=== PATIENT | female | born 1940 | race Hispanic/Latino ===

== ENCOUNTER 2021-02-08 19:22 | Inpatient (IN) | payer MEDICARE ==
[2021-02-08] MEDS ORDERED: SODIUM CHLORIDE 0.9% 500 ML 500 ML IV ONE (21:38)
[2021-02-08] MEDS ORDERED: ALBUTEROL 2.5 MG/3 ML NEBU IH ONE (21:38)
[2021-02-08] MEDS ORDERED: MORPHINE 4 MG/1 ML INJ IV ONE (21:38)
[2021-02-08] MEDS ORDERED: ACETAMINOPHEN 500 MG TAB PO ONE (21:38)
[2021-02-08] MEDS ORDERED: ONDANSETRON 4 MG/2 ML INJ IV ONE (21:38)
[2021-02-08] MEDS ORDERED: IPRATROPIUM 0.02% NEBU 2.5 ML IH ONE (21:38)
[2021-02-08] MEDS ORDERED: dexAMETHasone 4 MG/ML VIAL IV ONE (21:40)
--- NOTE | 2021-02-08 21:41 | Emergency Department Report ---
ED General Adult HPI - General Chief complaint: Dyspnea/Respdistress Stated complaint: LAURA PUI?: Yes Time Seen by Provider: 02/08/21 21:20 Source: patient, EMS ( EMS documentation not available at time of chart dictation ), RN notes reviewed Mode of arrival: Stretcher Limitations: Physical Limitation - History of Present Illness Initial comments: The patient was evaluated in the emergency department for symptoms described in the history of present illness. He/she was evaluated in the context of the global COVID-19 pandemic, which necessitated consideration that the patient might be at risk for infection with the virus that causes COVID-19. Institutional protocols and algorithms that pertain to the evaluation of patient s at risk for COVID-19 are in a state of rapid change based on information released by regulatory bodies including the CDC and federal and state organizations. These policies and algorithms were followed during the patient's care in the emergency department. Please note that these policies, procedures and recommendations changed on a rapid basis. Hematology oncology: Dr. Solis Past medical history: Chronic respiratory failure, on as needed home oxygen. Reported history of COPD and lung cancer. DNR, DNI status. Believes she is up-to-date with COVID-19 vaccination. The patient is a 80-year-old female who is not known to myself previously. She presents to the ER with a complaint of generalized weakness, cough, shortness of breath, clear mucus production. She states that she has mild nausea but no vomiting. She states that she is bedbound. She states she typically gets around in a wheelchair. No fever. No headache. No chest pain. No vomiting. No diarrhea. No dysuria. No focal extremity weakness/numbness. No hematemesis of bright red blood per rectum. No known exposure to Covid. She states she lives with a friend/roommate. She reports her son is named Eduardo, candis d lives in [facility]. The patient is interested in comfort care, and is amenable to fluids, blood work, and some diagnostic radiology. She is not interested in packed red blood cell transfusions. -: Gradual, week(s) Consistency: constant Improves with: rest Worsens with: movement - Related Data Allergies Allergy/AdvReac Type Severity Reaction Status Date / Time Penicillins Allergy Mild Hives Verified 02/08/21 21:24 ED Review of Systems ROS: Stated complaint: LAURA Other details as noted in HPI Constitutional: malaise, weakness Eyes: denies: eye discharge ENT: denies: epistaxis Respiratory: cough, shortness of breath, SOB with exertion, SOB at rest, wheezing Cardiovascular: denies: chest pain Gastrointestinal: nausea. denies: abdominal pain Musculoskeletal: denies: back pain Neurological: weakness Hematological/Lymphatic: denies: easy bleeding ED Past Medical Hx - Past Medical History Hx of Cancer: Yes Hx COPD: Yes Additional medical history: lung CA - Social History Smoking Status: Former Smoker Substance Use Type: None ED Physical Exam - General Limitations: Physical Limitation General appearance: alert, anxious, in distress - Head Head exam: Present: atraumatic, normocephalic - Eye Eye exam: Present: normal appearance, EOMI. Absent: nystagmus - ENT ENT exam: Present: normal exam, normal orophraynx, mucous membranes moist, normal external ear exam - Neck Neck exam: Present: normal inspection, full ROM - Respiratory Respiratory exam: Present: respiratory distress, other (Pulmonary auscultation not performed secondary to lack of disposable stethoscope). 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 Absent: distended, tenderness, guarding, rebound, rigid, pulsatile mass - Extremities Exam Extremities exam: Present: normal inspection, other (2+ pulses noted in the bilateral upper and lower extremities. There is no palpable cord. negative Homans sign. Muscular compartments are soft. The pelvis is stable.). Absent: normal capillary refill (3-second capillary refill in the lower extremities), pedal edema, calf tenderness - Back Exam Back exam: Present: normal inspection. Absent: tenderness, CVA tenderness (R), CVA tenderness (L), paraspinal tenderness, vertebral tenderness - Neurological Exam Neurological exam: Present: alert, oriented X3, other (No facial droop. Tongue midline. Extraocular movements intact bilaterally. Facial sensation intact to light touch in V1, V2, V3 distribution bilaterally. 5 and a 5 strength in 4 extremities. Sensation intact to light touch in 4 extremities.) - Psychiatric Psychiatric exam: Present: anxious - Skin Skin exam: Present: warm, dry, intact, normal color. Absent: rash ED Course Vital Signs 02/08/21 02/08/21 02/08/21 20:02 20:16 21:16 Temperature Pulse Rate 82 Pulse Rate [ Bilateral] Respiratory 21 Rate Respiratory Rate [Bilateral ] Blood Pressure 134/69 134/69 132/64 O2 Sat by Pulse 99 96 96 Oximetry 02/08/21 02/08/21 02/08/21 21:25 21:30 21:45 Temperature 99.3 F Pulse Rate 82 80 80 Pulse Rate [ Bilateral] Respiratory 23 27 H Rate Respiratory Rate [Bilateral ] Blood Pressure 132/64 132/64 O2 Sat by Pulse 95 94 Oximetry 02/08/21 02/08/21 02/08/21 21:46 22:00 22:16 Temperature Pulse Rate 81 81 85 Pulse Rate [ Bilateral] Respiratory 21 22 22 Rate Respiratory Rate [Bilateral ] Blood Pressure 134/69 122/83 132/64 O2 Sat by Pulse 95 96 92 Oximetry 02/08/21 02/08/21 22:30 22:54 Temperature Pulse Rate 82 Pulse Rate [ 82 Bilateral] Respiratory 19 Rate Respiratory 20 Rate [Bilateral ] Blood Pressure 132/64 O2 Sat by Pulse 92 Oximetry - Reevaluation(s) Reevaluation #1: 02/08/21 22:22 Differential diagnosis, including but not limited to: COPD exacerbation, pneumonia, COVID-19, electrolyte derangement, failure to thrive, urinary tract infection, DNR status Assessment and plan: 80-year-old female with chronic respiratory failure, known history of COPD, known history of lung cancer, states not currently on chemotherapy or radiation therapy, likely presenting with natural history of end-stage COPD. Patient states she is bedbound, poorly mobile, and is interested in comfort care. There is no history of trauma. She has signed an a rticulated but desire to be DO NOT RESUSCITATE, DO NOT INTUBATE; this conversation is witnessed by nurse Fiorella Benites. The patient and I spent about 15 minutes discussing advanced directives and goa ls of care. She is not interested in packed red blood cell. She is amenable to having port access, analgesia, antiemetics, and supportive care. I appreciate that this patient has risk factors for pulmonary embolism, however, given advanced age, poor mobility, fall risk, her desire to not receive packed red blood cell transfusion, and articulated goals of care (comfort care), will not work-up/pursue pulmonary embolism at this time. Have recommended admission to the medical service once initial diagnostics are resulted. Patient is agreeable to this plan of care. She is asking to drink water. We will treat her empirically with acetaminophen, antiemetics, albuterol, Atrovent and steroids. 02/08/21 23:09 Laboratory studies, x-ray of the chest reviewed and appreciated. Levaquin ordered given penicillin allergy. Admitted to hospital service, Dr. Angela Shen and RONY Cardoso ED Medical Decision Making - Lab Data Result diagrams: 02/08/21 21:52 02/08/21 21:52 Vital Signs 02/08/21 02/08/21 02/08/21 20:02 20:16 21:16 Temperature Pulse Rate 82 Respiratory 21 Rate Blood Pressure 134/69 134/69 132/64 O2 Sat by Pulse 99 96 96 Oximetry 02/08/21 02/08/21 02/08/21 21:25 21:30 21:45 Temperature 99.3 F Pulse Rate 82 80 80 Respiratory 23 27 H Rate Blood Pressure 132/64 132/64 O2 Sat by Pulse 95 94 Oximetry 02/08/21 21:46 Temperature Pulse Rate Respiratory Rate Blood Pressure O2 Sat by Pulse 93 Oximetry Lab Results 02/08/21 02/08/21 Range/Units 21:52 21:52 WBC 8.1 (4.5-11.0) K/mm3 RBC 4.71 (3.65-5.03) M/mm3 Hgb 13.7 (10.1-14.3) gm/dl Hct 40.3 (30.3-42.9) % MCV 86 (79-97) fl MCH 29 (28-32) pg MCHC 34 (30-34) % RDW 17.3 H (13.2-15.2) % Plt Count 283 (140-440) K/mm3 Lymph % (Auto) 13.4 (13.4-35.0) % [place] % (Auto) 7.8 H (0.0-7.3) % Eos % (Auto) 2.5 (0.0-4.3) % Baso % (Auto) 0.5 (0.0-1.8) % Lymph # (Auto) 1.1 L (1.2-5.4) K/mm3 [place] # (Auto) 0.6 (0.0-0.8) K/mm3 Eos # (Auto) 0.2 (0.0-0.4) K/mm3 Baso # (Auto) 0.0 (0.0-0.1) K/mm3 Seg Neutrophils % 75.8 H (40.0-70.0) % Seg Neutrophils # 6.1 (1.8-7.7) K/mm3 PT 14.2 (12.2-14.9) Sec. INR 1.05 (0.87-1.13) D-Dimer 794.56 H (0-234) ng/mlDDU Lab Results 02/08/21 02/08/21 02/08/21 Range/Units 21:52 21:52 21:52 WBC 8.1 (4.5-11.0) K/mm3 RBC 4.71 (3.65-5.03) M/mm3 Hgb 13.7 (10.1-14.3) gm/dl Hct 40.3 (30.3-42.9) % MCV 86 (79-97) fl MCH 29 (28-32) pg MCHC 34 (30-34) % RDW 17.3 H (13.2-15.2) % Plt Count 283 (140-440) K/mm3 Lymph % (Auto) 13.4 (13.4-35.0) % [place] % (Auto) 7.8 H (0.0-7.3) % Eos % (Auto) 2.5 (0.0-4.3) % Baso % (Auto) 0.5 (0.0-1.8) % Lymph # (Auto) 1.1 L (1.2-5.4) K/mm3 [place] # (Auto) 0.6 (0.0-0.8) K/mm3 Eos # (Auto) 0.2 (0.0-0.4) K/mm3 Baso # (Auto) 0.0 (0.0-0.1) K/mm3 Seg Neutrophils % 75.8 H (40.0-70.0) % Seg Neutrophils # 6.1 (1.8-7.7) K/mm3 PT (12.2-14.9) Sec. INR (0.87-1.13) D-Dimer (0-234) ng/mlDDU Sodium 138 (137-145) mmol/L Potassium 4.1 (3.6-5.0) mmol/L Chloride 100.7 (98-107) mmol/L Carbon Dioxide 24 (22-30) mmol/L Anion Gap 17 mmol/L BUN 13 (7-17) mg/dL Creatinine 0.6 (0.6-1.2) mg/dL Estimated GFR > 60 ml/min BUN/Creatinine Ratio 22 % Glucose 82 (65-100) mg/dL Lactic Acid 0.80 (0.7-2.0) mmol/L Calcium 9.0 (8.4-10.2) mg/dL Magnesium 1.80 (1.7-2.3) mg/dL Ferritin (10.0-200.0) ng/mL Total Bilirubin 0.40 (0.1-1.2) mg/dL AST 14 (5-40) units/L ALT 6 L (7-56) units/L Alkaline Phosphatase 66 (35-129) units/L Lactate Dehydrogenase (91-180) units/L Troponin T (0.00-0.029) ng/mL C-Reactive Protein (0.00-1.30) mg/dL NT-Pro-B Natriuret Pep 498.9 (0-900) pg/mL Total Protein 7.9 (6.3-8.2) g/dL Albumin 3.7 L (3.9-5) g/dL Albumin/Globulin Ratio 0.9 % 02/08/21 02/08/21 02/08/21 Range/Units 21:52 21:52 21:52 WBC (4.5-11.0) K/mm3 RBC (3.65-5.03) M/mm3 Hgb (10.1-14.3) gm/dl Hct (30.3-42.9) % MCV (79-97) fl MCH (28-32) pg MCHC (30-34) % RDW (13.2-15.2) % Plt Count (140-440) K/mm3 Lymph % (Auto) (13.4-35.0) % [place] % (Auto) (0.0-7.3) % Eos % (Auto) (0.0-4.3) % Baso % (Auto) (0.0-1.8) % Lymph # (Auto) (1.2-5.4) K/mm3 [place] # (Auto) (0.0-0.8) K/mm3 Eos # (Auto) (0.0-0.4) K/mm3 Baso # (Auto) (0.0-0.1) K/mm3 Seg Neutrophils % (40.0-70.0) % Seg Neutrophils # (1.8-7.7) K/mm3 PT 14.2 (12.2-14.9) Sec. INR 1.05 (0.87-1.13) D-Dimer 794.56 H (0-234) ng/mlDDU Sodium (137-145) mmol/L Potassium (3.6-5.0) mmol/L Chloride (98-107) mmol/L Carbon Dioxide (22-30) mmol/L Anion Gap mmol/L BUN (7-17) mg/dL Creatinine (0.6-1.2) mg/dL Estimated GFR ml/min BUN/Creatinine Ratio % Glucose 85 (65-100) mg/dL Lactic Acid (0.7-2.0) mmol/L Calcium (8.4-10.2) mg/dL Magnesium (1.7-2.3) mg/dL Ferritin 110.6 (10.0-200.0) ng/mL Total Bilirubin (0.1-1.2) mg/dL AST (5-40) units/L ALT (7-56) units/L Alkaline Phosphatase (35-129) units/L Lactate Dehydrogenase 165 (91-180) units/L Troponin T < 0.010 (0.00-0.029) ng/mL C-Reactive Protein 6.10 H (0.00-1.30) mg/dL NT-Pro-B Natriuret Pep (0-900) pg/mL Total Protein (6.3-8.2) g/dL Albumin (3.9-5) g/dL Albumin/Globulin Ratio % - EKG Data -: EKG Interpreted by Tn EKG shows normal: sinus rhythm - EKG Data When compared to previous EKG there are: previous EKG unavailable 02/08/21 22:25 EKG interpreted at 21: 42 Sinus rhythm, rate 80 bpm. Normal axis, normal P wave axis. Q waves noted. Motion artifact. Abnormal EKG. Not a STEMI. No prior for comparison. - Radiology Data Radiology results: pending, report reviewed, image reviewed [facility] [address] [place] [address] XRay Report Signed Patient: LIT FELIX MR#: [id number] : 1940 Acct:[id number] Age/Sex: 80 / F ADM Date: 02/08/21 Loc: ED Attending Dr: Nic nicholas Physician: LIZETTE KAMARA MD Date of Service: 02/08/21 Procedure(s): XR chest 1V ap Accession Number(s): [id number] cc: LIZETTE KAMARA MD Fluoro Time In Minutes: CHEST 1 VIEW INDICATION: Dyspnea. COMPARISON: None FINDINGS: SUPPORT DEVICES: Right-sided Port-A-Cath with tip at the cavoatrial junction. HEART: Within normal limits. LUNGS/PLEURA: Emphysematous changes in the lungs with chronic-appearing diffuse interstitial disease. No dense consolidation or pleural effusion. ADDITIONAL FINDINGS: None. IMPRESSION: 1. No definite acute findings. Likely chronic findings. Signer Name: Tray Gavin MD Signed: 02/08/2021 10:12 PM Workstation Name: [id number] Transcribed By: JW Dictated By: Tray Gavin MD Electronically Authenticated By: Tray Gavin MD Signed Date/Time: 02/08/212211 DD/ 10 Critical Care Time: Yes Critical care time in (mins) excluding proc time.: 35 Critical care attestation.: If time is entered above; I have spent that time in minutes in the direct care of this critically ill patient, excluding procedure time. ED Disposition Clinical Impression: COPD with exacerbation, History of lung cancer, Failure to thrive, Chronic respiratory failure, DNR (do not resuscitate) discussion Disposition: DC-09 OP ADMIT IP TO THIS HOSP Is pt being admited?: Yes Does the pt Need Aspirin: No Condition: Poor Instructions: Chronic Obstructive Pulmonary Disease (ED) Referrals: PRIMARY CARE, [Primary Care Provider] - 3-5 Days
[2021-02-08 22:10] LABS: Basophils % (Auto) 0.5 % (0.0-1.8); Eosinophils # (Auto) 0.2 K/mm3 (0.0-0.4); Eosinophils % (Auto) 2.5 % (0.0-4.3); Hematocrit 40.3 % (30.3-42.9); Hemoglobin 13.7 gm/dl (10.1-14.3); Lymphocytes # (Auto) 1.1 K/mm3 (1.2-5.4); Lymphocytes % (Auto) 13.4 % (13.4-35.0); Mean Corpuscular HGB Conc 34 % (30-34); Mean Corpuscular Volume 86 fl (79-97); Monocytes # (Auto) 0.6 K/mm3 (0.0-0.8); Monocytes % (Auto) 7.8 % (0.0-7.3); Platelet Count 283 K/mm3 (140-440); Red Blood Count 4.71 M/mm3 (3.65-5.03); Red Cell Distribution Width 17.3 % (13.2-15.2)
--- NOTE | 2021-02-08 22:17 | XRay Report ---
CHEST 1 VIEW INDICATION: Dyspnea. COMPARISON: None FINDINGS: SUPPORT DEVICES: Right-sided Port-A-Cath with tip at the cavoatrial junction. HEART: Within normal limits. LUNGS/PLEURA: Emphysematous changes in the lungs with chronic-appearing diffuse interstitial disease. No dense consolidation or pleural effusion. ADDITIONAL FINDINGS: None. IMPRESSION: 1. No definite acute findings. Likely chronic findings. Signer Name: Tray Gavin MD Signed: 02/08/2021 10:12 PM Workstation Name: [id number]
[2021-02-08 22:21] LABS: INR 1.05 (0.87-1.13)
[2021-02-08 22:59] LABS: Alanine Aminotransferase 6 units/L (7-56); Albumin 3.7 g/dL (3.9-5); Blood Urea Nitrogen 13 mg/dL (7-17); Hemolysis Index 4
[2021-02-08 23:01] LABS: BUN/Creatinine Ratio 22
[2021-02-08] MEDS ORDERED: MAGNESIUM HYDROXIDE (MOM) ORAL LIQD UDC PO PRN (23:37)
[2021-02-08] MEDS ORDERED: MORPHINE 4 MG/1 ML INJ IV PRN (23:37)
[2021-02-08] MEDS ORDERED: ACETAMINOPHEN 325 MG TAB PO PRN (23:37)
--- NOTE | 2021-02-08 23:49 | History and Physical Report ---
History of Present Illness Date of examination: 02/08/21 Date of admission: 02/08/2021 Chief complaint: Shortness of Breath Cough History of present illness: 80-year-old female with known history of COPD-on home oxygen and lung cancer presents to the emergency room today complaining of cough, shortness of breath and generalized body weakness. Cough has been productive for some clear sputum. She denies any fever or chills, no chest pain, no headache or dizziness and no diaphoresis. Patient has had some nausea but no vomiting, no abdominal pain, no hematuria or dysuria. She denies any recent travel and no sick contacts. She denies any contact with anyone with COVID-19. Patient has been fully vaccinated against COVID-19. She lives with a roommate and she gets around on a wheelchair. She indicates that she is amenable to comfort care, IV fluid, lab test and some diagnostic radiology. Work-up in the emergency room today, chest x-ray shows no acute findings. Lab tests were unremarkable. Patient received nebulizing treatments and IV steroid in the emergency room with significant improvement. Past History Past Medical History: COPD, other (H/O Lung CA.) Past Surgical History: No surgical history Social history: no significant social history Family history: no significant family history Medications and Allergies Allergies Allergy/AdvReac Type Severity Reaction Status Date / Time Penicillins Allergy Mild Hives Verified 02/08/21 21:24 Active Meds: Active Medications Acetaminophen (Acetaminophen 325 Mg Tab) 650 mg PO Q4H PRN PRN Reason: Pain MILD(1-3)/Fever >100.5/IBRAHIM Albuterol/Ipratropium (Ipratropium/Albuterol Sulfate 3 Ml Ampul.Neb) 1 ampul IH Q4HRT STEPHANY Levofloxacin/Dextrose (Levaquin 500mg/100ml) 500 mg in 100 mls @ 100 mls/hr IV ONCE ONE; Protocol Stop: 02/09/21 00:07 Levofloxacin/Dextrose (Levaquin 750mg/150ml) 750 mg in 150 mls @ 100 mls/hr IV Q24H STEPHANY; Protocol Magnesium Hydroxide (Magnesium Hydroxide (Mom) Oral Liqd Udc) 30 ml PO Q4H PRN PRN Reason: Constipation Methylprednisolone Sodium Succinate (Methylprednisolone Sod Succinate 40 Mg/1 Ml Inj) 40 mg IV Q8HR STEPHANY Morphine Sulfate (Morphine 2 Mg/1 Ml Inj) 2 mg IV Q4H PRN PRN Reason: Pain, Moderate (4-6) Morphine Sulfate (Morphine 4 Mg/1 Ml Inj) 4 mg IV Q4H PRN PRN Reason: Pain , Severe (7-10) Ondansetron HCl (Ondansetron 4 Mg/2 Ml Inj) 4 mg IV Q8H PRN PRN Reason: Nausea And Vomiting Sodium Chloride (Sodium Chloride 0.9% 10 Ml Flush Syringe) 10 ml IV BID STEPHANY Sodium Chloride (Sodium Chloride 0.9% 10 Ml Flush Syringe) 10 ml IV PRN PRN PRN Reason: LINE FLUSH Review of Systems Constitutional: weakness, no fever, no chills Ears, nose, mouth and throat: no nasal congestion, no sore throat Cardiovascular: no chest pain, no palpitations Respiratory: cough, shortness of breath Gastrointestinal: nausea, no abdominal pain, no vomiting, no diarrhea Genitourinary Female: no pelvic pain, no flank pain, no dysuria, no hematuria Musculoskeletal: no neck pain, no low back pain Integumentary: no rash, no pruritis Neurological: no headaches, no confusion Psychiatric: no anxiety, no depression Endocrine: no polydipsia, no polyuria, no nocturia Exam - Constitutional Vitals: Temp Pulse Resp BP Pulse Ox 99.3 F 82 20 132/64 92 02/08/21 21:25 02/08/21 22:54 02/08/21 22:54 02/08/21 22:30 02/08/21 22:30 General appearance: Present: no acute distress, well-nourished - EENT Eyes: Present: PERRL, EOM intact. Absent: scleral icterus ENT: hearing intact, clear oral mucosa, dentition normal - Neck Neck: Present: supple, normal ROM - Respiratory Respiratory effort: normal Respiratory: bilateral: wheezing (Few scatttered wheezes) - Cardiovascular Rhythm: regular Heart Sounds: Present: S1 & S2. Absent: gallop, systolic murmur, diastolic murmur, rub, click - Extremities Extremities: no ischemia, pulses intact, pulses symmetrical, No edema, normal temperature, normal color, Full ROM Peripheral Pulses: within normal limits - Abdominal General gastrointestinal: Present: soft, non-tender, non-distended, normal bowel sounds. Absent: mass - Integumentary Integumentary: Present: clear, warm, dry. Absent: rash - Musculoskeletal Musculoskeletal: strength equal bilaterally - Psychiatric Psychiatric: appropriate mood/affect, intact judgment & insight, memory intact, cooperative - Neurologic Neurologic: CNII-XII intact, no focal deficits, moves all extremities HEART Score - HEART Score Troponin: Troponin T < 0.010 ng/mL (0.00-0.029) 02/08/21 21:52 Results - Labs CBC & Chem 7: 02/08/21 21:52 02/08/21 21:52 Labs: Abnormal lab results 02/08/21 02/08/21 02/08/21 Range/Units 21:52 21:52 21:52 RDW 17.3 H (13.2-15.2) % [place] % (Auto) 7.8 H (0.0-7.3) % Lymph # (Auto) 1.1 L (1.2-5.4) K/mm3 Seg Neutrophils % 75.8 H (40.0-70.0) % D-Dimer (0-234) ng/mlDDU ALT 6 L (7-56) units/L C-Reactive Protein 6.10 H (0.00-1.30) mg/dL Albumin 3.7 L (3.9-5) g/dL 02/08/21 Range/Units 21:52 RDW (13.2-15.2) % [place] % (Auto) (0.0-7.3) % Lymph # (Auto) (1.2-5.4) K/mm3 Seg Neutrophils % (40.0-70.0) % D-Dimer 794.56 H (0-234) ng/mlDDU ALT (7-56) units/L C-Reactive Protein (0.00-1.30) mg/dL Albumin (3.9-5) g/dL Assessment and Plan - Patient Problems (1) COPD with exacerbation Current Visit: Yes Status: Acute Plan to address problem: Patient placed on nebulizing treatments and IV steroid. We will keep O2 saturation greater or equal to 93%. (2) Failure to thrive Current Visit: Yes Status: Acute (3) History of lung cancer Current Visit: Yes Status: Acute (4) DVT prophylaxis Current Visit: Yes Status: Acute Plan to address problem: Patient placed on subcutaneous heparin. (5) DNR (do not resuscitate) discussion Current Visit: Yes Status: Acute Plan to address problem: Patient is a DNR.
[2021-02-09 00:39] LABS: Bilirubin,Urine NEG (Negative); Blood,Urine NEG (Negative); Color,Urine Yellow (Yellow); Mucus,Urine FEW /HPF; Protein,Urine <15 mg/dL mg/dL (Negative); Urobilinogen,Urine < 2.0 mg/dL (<2.0)
[2021-02-09] MEDS: IPRATROPIUM/ALBUTEROL SULFATE 3 ML AMPUL.NEB IH SCH ×5 (02:46→21:15)
[2021-02-09] MEDS: methylPREDNISolone Sod Succinate 40 MG/1 ML INJ IV SCH ×3 (05:34→21:48)
[2021-02-09 05:38] LABS: Basophils % (Auto) 0.4 % (0.0-1.8); Eosinophils % (Auto) 0.2 % (0.0-4.3); Hematocrit 36.8 % (30.3-42.9); Hemoglobin 12.1 gm/dl (10.1-14.3); Lymphocytes # (Auto) 0.6 K/mm3 (1.2-5.4); Lymphocytes % (Auto) 11.9 % (13.4-35.0); Mean Corpuscular HGB Conc 33 % (30-34); Mean Corpuscular Volume 85 fl (79-97); Monocytes # (Auto) 0.1 K/mm3 (0.0-0.8); Platelet Count 202 K/mm3 (140-440); Red Blood Count 4.32 M/mm3 (3.65-5.03); Red Cell Distribution Width 16.9 % (13.2-15.2)
[2021-02-09 06:17] LABS: INR 1.12 (0.87-1.13)
[2021-02-09 06:24] LABS: Blood Urea Nitrogen 13 mg/dL (7-17); Calcium 8.1 mg/dL (8.4-10.2); Hemolysis Index 2
[2021-02-09 06:28] LABS: BUN/Creatinine Ratio 22
--- NOTE | 2021-02-09 12:07 | Progress Note ---
Assessment and Plan - Patient Problems (1) COPD with exacerbation Current Visit: Yes Status: Acute Plan to address problem: At present patient's acute respiratory failure secondary to COPD exacerbation. Patient also has underlying lung cancer malignancy that is currently not being treated. Patient is DNR. Labs unremarkable. Plan at present is to treat with nebulizers IV steroids. Patient may benefit from a steroid taper upon discharge. IV fluids and supplemental oxygen for pain control and hypoxemia. Patient was on oxygen which she thinks is 3 L at home. Anticipate discharge in a.m. (2) Chronic respiratory failure Current Visit: Yes Status: Acute Plan to address problem: Secondary to COPD lung cancer history of tobacco. (3) DNR (do not resuscitate) discussion Current Visit: Yes Status: Acute Plan to address problem: Patient advanced planning discussed. Patient is a DNR. Okay for hospitalization with supportive care comfort measures. (4) Failure to thrive Current Visit: Yes Status: Acute Plan to address problem: Secondary to cancer burden increased metabolic process from lung cancer. May benefit from palliative care. (5) History of lung cancer Current Visit: Yes Status: Acute Plan to address problem: History of lung cancer. Patient at present does not appear to be receiving a want any further disease directed therapy. Subjective Date of service: 02/09/21 Principal diagnosis: COPD exacerbation acute respiratory failure Interval history: 80-year-old with a history of COPD lung cancer presents with shortness of breath cough increased weakness. Essentially work-up was negative in ED ED. Chest x- ray negative labs unremarkable. Patient was given IV steroids and nebulizer treatments for COPD exacerbation. At present patient very cachectic and weak however able to speak in full sentences with minimal hypoxia with oxygen. Patient is currently stable with 3 L of oxygen. Wheezing has improved since this morning. Patient is new admit today. Objective - Constitutional Vitals: Vital Signs - 12hr 02/09/21 02/09/21 02/09/21 00:16 00:30 00:46 Pulse Rate 79 78 77 Respiratory 18 18 18 Rate Blood Pressure 117/78 117/78 117/78 O2 Sat by Pulse 88 95 95 Oximetry 02/09/21 02/09/21 02/09/21 01:00 01:16 01:30 Pulse Rate 80 78 78 Respiratory 19 18 19 Rate Blood Pressure 120/69 120/69 120/69 O2 Sat by Pulse 95 97 96 Oximetry 02/09/21 02/09/21 02/09/21 01:46 02:01 02:15 Pulse Rate 78 73 72 Respiratory 17 18 14 Rate Blood Pressure 120/69 122/60 122/60 O2 Sat by Pulse 97 97 98 Oximetry 02/09/21 02/09/21 02/09/21 02:30 02:45 03:01 Pulse Rate 71 70 71 Respiratory 15 13 12 Rate Blood Pressure 122/60 122/60 97/47 O2 Sat by Pulse 98 98 99 Oximetry 02/09/21 02/09/21 02/09/21 03:15 03:31 03:45 Pulse Rate 79 73 73 Respiratory 23 16 15 Rate Blood Pressure 97/47 97/47 97/47 O2 Sat by Pulse 92 97 96 Oximetry 02/09/21 02/09/21 02/09/21 04:01 04:15 04:31 Pulse Rate 72 70 71 Respiratory 15 15 17 Rate Blood Pressure 126/75 126/75 126/75 O2 Sat by Pulse 96 97 97 Oximetry 02/09/21 02/09/21 02/09/21 04:45 05:01 05:15 Pulse Rate 73 70 75 Respiratory 16 14 14 Rate Blood Pressure 126/75 113/78 113/78 O2 Sat by Pulse 95 99 99 Oximetry General appearance: Present: no acute distress - EENT Eyes: PERRL, EOM intact ENT: hearing decreased, thrush - Neck Neck: supple, normal ROM - Respiratory Respiratory: bilateral: diminished (Poor respiratory effort.), wheezing - Cardiovascular Rhythm: regular Extremities: no ischemia, pulses intact, pulses symmetrical, No edema - Gastrointestinal General gastrointestinal: Present: soft, non-tender, non-distended, normal bowel sounds - Integumentary Integumentary: clear, warm, dry - Musculoskeletal Musculoskeletal: generalized weakness - Neurologic Neurologic: moves all extremities - Psychiatric Psychiatric: memory intact, appropriate mood/affect, intact judgment & insight - Labs CBC & Chem 7: 02/09/21 04:00 02/09/21 04:00 Labs: Abnormal lab results 02/08/21 02/08/21 02/08/21 Range/Units 21:52 21:52 21:52 RDW 17.3 H (13.2-15.2) % Lymph % (Auto) (13.4-35.0) % [place] % (Auto) 7.8 H (0.0-7.3) % Lymph # (Auto) 1.1 L (1.2-5.4) K/mm3 Seg Neutrophils % 75.8 H (40.0-70.0) % D-Dimer (0-234) ng/mlDDU Glucose (65-100) mg/dL Calcium (8.4-10.2) mg/dL ALT 6 L (7-56) units/L C-Reactive Protein 6.10 H (0.00-1.30) mg/dL Albumin 3.7 L (3.9-5) g/dL 02/08/21 02/09/21 02/09/21 Range/Units 21:52 04:00 04:00 RDW 16.9 H (13.2-15.2) % Lymph % (Auto) 11.9 L (13.4-35.0) % [place] % (Auto) (0.0-7.3) % Lymph # (Auto) 0.6 L (1.2-5.4) K/mm3 Seg Neutrophils % 85.5 H (40.0-70.0) % D-Dimer 794.56 H (0-234) ng/mlDDU Glucose 117 H (65-100) mg/dL Calcium 8.1 L (8.4-10.2) mg/dL ALT (7-56) units/L C-Reactive Protein (0.00-1.30) mg/dL Albumin (3.9-5) g/dL - Imaging and cardiology Chest x-ray: report reviewed, image reviewed HEART Score - HEART Score Troponin: Troponin T < 0.010 ng/mL (0.00-0.029) 02/08/21 21:52
[2021-02-09] MEDS: ONDANSETRON 4 MG/2 ML INJ IV PRN (23:38)
[2021-02-10] MEDS: IPRATROPIUM/ALBUTEROL SULFATE 3 ML AMPUL.NEB IH SCH ×5 (00:40→20:18)
[2021-02-10] MEDS: MORPHINE 2 MG/1 ML INJ IV PRN ×2 (02:11→14:20)
[2021-02-10] MEDS: methylPREDNISolone Sod Succinate 40 MG/1 ML INJ IV SCH ×3 (05:38→22:23)
[2021-02-10] MEDS: ONDANSETRON 4 MG/2 ML INJ IV PRN ×2 (09:20→23:06)
--- NOTE | 2021-02-10 10:55 | Electrocardiograph Report ---
[facility] Test Date: 2021-02-08 Test Time: 21:42:25 Pat Name: LIT FELIX Department: Room: A482 Gender: F Rn Lab: ELEUTERIO : 1940 Requested By: LIZETTE KAMARA Order Number: [id number] Reading MD: Juwan Ruiz Measurements Intervals [place] Rate: 80 P: 70 WV: 147 QRS: 58 QRSD: 80 T: 81 QT: 400 QTc: 462 Interpretive Statements Sinus rhythm No previous ECG available for comparison Electronically Signed On 02-10-2021 10:54:54 EDT by Juwan Ruiz
--- NOTE | 2021-02-10 11:17 | Progress Note ---
Assessment and Plan Assessment and plan: Acute on chronic hypoxic respiratory failure. Patient with home O2 Acute COPD exacerbation History of lung CA. 02/10/2021. Continue supplemental oxygen to maintain sats greater than 92%. Patient currently on 4 L of oxygen. Continue empiric antibiotics of Levaquin. Continue Solu-Medrol 40 mg IV every 8 hours and bronchodilators/nebulizers. History Interval history: No new issues overnight Hospitalist Physical - Constitutional Vitals: Temp Pulse Resp BP Pulse Ox 98.6 F 123 H 18 135/101 95 02/10/21 08:19 02/10/21 08:19 02/10/21 08:19 02/10/21 08:19 02/10/21 09:32 General appearance: Present: no acute distress - EENT Eyes: Present: PERRL, EOM intact ENT: hearing intact, clear oral mucosa, dentition normal - Neck Neck: Present: supple, normal ROM - Respiratory Respiratory effort: normal Respiratory: bilateral: CTA - Cardiovascular Rhythm: regular Heart Sounds: Present: S1 & S2. Absent: gallop, rub - Extremities Extremities: no ischemia, No edema, Full ROM - Abdominal General gastrointestinal: soft, non-tender, non-distended, normal bowel sounds - Integumentary Integumentary: Present: clear, warm, dry - Neurologic Neurologic: CNII-XII intact, moves all extremities HEART Score - HEART Score Troponin: Troponin T < 0.010 ng/mL (0.00-0.029) 02/08/21 21:52 Results - Labs CBC & Chem 7: 02/09/21 04:00 02/09/21 04:00 Labs: Laboratory Last Values WBC 4.8 K/mm3 (4.5-11.0) 02/09/21 04:00 RBC 4.32 M/mm3 (3.65-5.03) 02/09/21 04:00 Hgb 12.1 gm/dl (10.1-14.3) 02/09/21 04:00 Hct 36.8 % (30.3-42.9) 02/09/21 04:00 MCV 85 fl (79-97) 02/09/21 04:00 MCH 28 pg (28-32) 02/09/21 04:00 MCHC 33 % (30-34) 02/09/21 04:00 RDW 16.9 % (13.2-15.2) H 02/09/21 04:00 Plt Count 202 K/mm3 (140-440) 02/09/21 04:00 Lymph % (Auto) 11.9 % (13.4-35.0) L 02/09/21 04:00 [place] % (Auto) 2.0 % (0.0-7.3) 02/09/21 04:00 Eos % (Auto) 0.2 % (0.0-4.3) 02/09/21 04:00 Baso % (Auto) 0.4 % (0.0-1.8) 02/09/21 04:00 Lymph # (Auto) 0.6 K/mm3 (1.2-5.4) L 02/09/21 04:00 [place] # (Auto) 0.1 K/mm3 (0.0-0.8) 02/09/21 04:00 Eos # (Auto) 0.0 K/mm3 (0.0-0.4) 02/09/21 04:00 Baso # (Auto) 0.0 K/mm3 (0.0-0.1) 02/09/21 04:00 Seg Neutrophils % 85.5 % (40.0-70.0) H 02/09/21 04:00 Seg Neutrophils # 4.1 K/mm3 (1.8-7.7) 02/09/21 04:00 PT 14.9 Sec. (12.2-14.9) 02/09/21 05:08 INR 1.12 (0.87-1.13) 02/09/21 05:08 D-Dimer 794.56 ng/mlDDU (0-234) H 02/08/21 21:52 Sodium 137 mmol/L (137-145) 02/09/21 04:00 Potassium 4.6 mmol/L (3.6-5.0) 02/09/21 04:00 Chloride 102.4 mmol/L (98-107) 02/09/21 04:00 Carbon Dioxide 22 mmol/L (22-30) 02/09/21 04:00 Anion Gap 17 mmol/L 02/09/21 04:00 BUN 13 mg/dL (7-17) 02/09/21 04:00 Creatinine 0.6 mg/dL (0.6-1.2) 02/09/21 04:00 Estimated GFR > 60 ml/min 02/09/21 04:00 BUN/Creatinine Ratio 22 % 02/09/21 04:00 Glucose 117 mg/dL (65-100) H 02/09/21 04:00 Lactic Acid 0.80 mmol/L (0.7-2.0) 02/08/21 21:52 Calcium 8.1 mg/dL (8.4-10.2) L 02/09/21 04:00 Magnesium 1.80 mg/dL (1.7-2.3) 02/08/21 21:52 Ferritin 110.6 ng/mL (10.0-200.0) 02/08/21 21:52 Total Bilirubin 0.40 mg/dL (0.1-1.2) 02/08/21 21:52 AST 14 units/L (5-40) 02/08/21 21:52 ALT 6 units/L (7-56) L 02/08/21 21:52 Alkaline Phosphatase 66 units/L (35-129) 02/08/21 21:52 Lactate Dehydrogenase 165 units/L (91-180) 02/08/21 21:52 Troponin T < 0.010 ng/mL (0.00-0.029) 02/08/21 21:52 C-Reactive Protein 6.10 mg/dL (0.00-1.30) H 02/08/21 21:52 NT-Pro-B Natriuret Pep 498.9 pg/mL (0-900) 02/08/21 21:52 Total Protein 7.9 g/dL (6.3-8.2) 02/08/21 21:52 Albumin 3.7 g/dL (3.9-5) L 02/08/21 21:52 Albumin/Globulin Ratio 0.9 % 02/08/21 21:52 Procalcitonin < 0.05 ng/mL (<0.15) 02/08/21 21:52 Urine Color Yellow (Yellow) 02/08/21 Unknown Urine Turbidity Hazy (Clear) 02/08/21 Unknown Urine pH 5.0 (5.0-7.0) 02/08/21 Unknown Ur Specific [place] 1.011 (1.003-1.030) 02/08/21 Unknown Urine Protein <15 mg/dl mg/dL (Negative) 02/08/21 Unknown Urine Glucose (UA) Neg mg/dL (Negative) 02/08/21 Unknown Urine Ketones Neg mg/dL (Negative) 02/08/21 Unknown Urine Blood Neg (Negative) 02/08/21 Unknown Urine Nitrite Neg (Negative) 02/08/21 Unknown Urine Bilirubin Neg (Negative) 02/08/21 Unknown Urine Urobilinogen < 2.0 mg/dL (<2.0) 02/08/21 Unknown Ur Leukocyte Esterase Neg (Negative) 02/08/21 Unknown Urine WBC (Auto) 5.0 /HPF (0.0-6.0) 02/08/21 Unknown Urine RBC (Auto) 1.0 /HPF (0.0-6.0) 02/08/21 Unknown U Epithel Cells (Auto) 13.0 /HPF (0-13.0) 02/08/21 Unknown Urine Mucus Few /HPF 02/08/21 Unknown Coronavirus (PCR) Negative (Negative) 02/08/21 Unknown Olmos/IV: Voiding Method External Female Catheter Active Medications - Current Medications Current Medications: Generic Name Dose Route Start Last Admin Trade Name Freq PRN Reason Stop Dose Admin Acetaminophen 650 mg 02/08/21 23:37 Acetaminophen 325 Mg Tab PO Q4H PRN Pain MILD(1-3)/Fever >100.5/IBRAHIM Albuterol/Ipratropium 1 ampul 02/10/21 14:00 Ipratropium/Albuterol Sulfate 3 Ml Ampul.Neb IH Q6HRT PENDING SALE TO [facility] Levofloxacin 750 mg 02/11/21 10:00 Levofloxacin 750 Mg Tab PO 02/15/21 10:01 Q48H PENDING S[facility] TO [facility] Protocol Magnesium Hydroxide 30 ml 02/08/21 23:37 Magnesium Hydroxide (Mom) Oral Liqd Udc PO Q4H PRN Constipation Methylprednisolone Sodium Succinate 40 mg 02/09/21 06:00 02/10/21 05:38 Methylprednisolone Sod Succinate 40 Mg/1 Ml Inj IV 40 mg Q8HR STEPHANY Administration Morphine Sulfate 2 mg 02/08/21 23:37 02/10/21 02:11 Morphine 2 Mg/1 Ml Inj IV 2 mg Q4H PRN Administration Pain, Moderate (4-6) Morphine Sulfate 4 mg 02/08/21 23:37 Morphine 4 Mg/1 Ml Inj IV Q4H PRN Pain , Severe (7-10) Ondansetron HCl 4 mg 02/08/21 23:37 02/10/21 09:20 Ondansetron 4 Mg/2 Ml Inj IV 4 mg Q8H PRN Administration Nausea And Vomiting Sodium Chloride 10 ml 02/09/21 10:00 02/09/21 21:49 Sodium Chloride 0.9% 10 Ml Flush Syringe IV 10 ml BID STEPHANY Administration Sodium Chloride 10 ml 02/08/21 23:37 Sodium Chloride 0.9% 10 Ml Flush Syringe IV PRN PRN LINE FLUSH Nutrition/Malnutrition Assess - Dietary Evaluation Nutrition/Malnutrition Findings: Nutrition Notes Start: 02/09/21 17:13 Freq: Status: Active Protocol: Document 02/09/21 17:13 LETICIA (Rec: 02/09/21 17:17 LETICIA [id number]) Nutrition Notes Need for Assessment generated from: Low BMI Initial or Follow up Assessment Current Diagnosis COPD Other Pertinent Diagnosis COPD exacerbation, FTT, Lung CA Current Diet Regular Labs/Tests Reviewed Pertinent Medications Solumedrol Height 5 ft 6 in Weight 48.534 kg [place] Body Weight (kg) 59.09 BMI 17.2 Weight Status Underweight Subjective/Other Information Pt screened for low BMI. Pt in ED at this time. Burn Absent Trauma Absent #1 Nutrition Diagnosis Underweight Etiology advanced age, COPD As Evidenced by Signs and Symptoms BMI 17.3 Is patient on ventilator? No Is Patient Ambulatory and/or Out of Bed No REE-([facility]-confined to bed) 1179.504 Kcal/Kg value to use for calculation 35 Approximate Energy Requirements Using 1699 kcal/Kg Calculation Used for Recommendations Kcal/kg Additional Notes Pro needs 1.2-1.5g/k-73g/ day Fluid needs 1ml/kcal Nutrition Intervention Change Diet Order: Continue current diet order Goal #1 PO intakes to meet at least 75 % energy and pro needs Goal #2 Wt maintenance and/or gain Anticipated Discharge Needs: May need ONS 1-2 times daily for wt maintenance Follow-Up By: 02/11/21 Additional Comments F/U: intakes, need for ONS
[2021-02-11] MEDS: IPRATROPIUM/ALBUTEROL SULFATE 3 ML AMPUL.NEB IH SCH ×3 (02:40→14:54)
[2021-02-11] MEDS: methylPREDNISolone Sod Succinate 40 MG/1 ML INJ IV SCH (06:08)
[2021-02-11] MEDS: ONDANSETRON 4 MG/2 ML INJ IV PRN (09:01)
[2021-02-11] MEDS ORDERED: levoFLOXacin 750 MG TAB PO SCH (10:00)
--- NOTE | 2021-02-11 10:16 | Progress Note ---
Assessment and Plan Assessment and plan: Acute on chronic hypoxic respiratory failure. Patient with home O2 Acute COPD exacerbation History of lung CA. 02/10/2021. Continue supplemental oxygen to maintain sats greater than 92%. Patient currently on 4 L of oxygen. Continue empiric antibiotics of Levaquin. Continue Solu-Medrol 40 mg IV every 8 hours and bronchodilators/nebulizers. 02/11/2021. Patient satting 94% on room air. Patient will likely need to be discharged home. However, patient with some family dynamics with barrier. Emi ent reports she lives with her son but he is on vacation until tomorrow. Will discuss with case management discharge planning. History Interval history: No new issues overnight Hospitalist Physical - Constitutional Vitals: Temp Pulse Resp BP Pulse Ox 98.4 F 102 H 18 180/87 95 02/11/21 08:43 02/11/21 08:43 02/11/21 08:43 02/11/21 08:43 02/11/21 08:43 General appearance: Present: no acute distress - EENT Eyes: Present: PERRL, EOM intact ENT: hearing intact, clear oral mucosa, dentition normal - Neck Neck: Present: supple, normal ROM - Respiratory Respiratory effort: normal Respiratory: bilateral: CTA - Cardiovascular Rhythm: regular Heart Sounds: Present: S1 & S2. Absent: gallop, rub - Extremities Extremities: no ischemia, No edema, Full ROM - Abdominal General gastrointestinal: soft, non-tender, non-distended, normal bowel sounds - Integumentary Integumentary: Present: clear, warm, dry - Neurologic Neurologic: CNII-XII intact, moves all extremities HEART Score - HEART Score Troponin: Troponin T < 0.010 ng/mL (0.00-0.029) 02/08/21 21:52 Results - Labs CBC & Chem 7: 02/09/21 04:00 02/09/21 04:00 Labs: Laboratory Last Values WBC 4.8 K/mm3 (4.5-11.0) 02/09/21 04:00 RBC 4.32 M/mm3 (3.65-5.03) 02/09/21 04:00 Hgb 12.1 gm/dl (10.1-14.3) 02/09/21 04:00 Hct 36.8 % (30.3-42.9) 02/09/21 04:00 MCV 85 fl (79-97) 02/09/21 04:00 MCH 28 pg (28-32) 02/09/21 04:00 MCHC 33 % (30-34) 02/09/21 04:00 RDW 16.9 % (13.2-15.2) H 02/09/21 04:00 Plt Count 202 K/mm3 (140-440) 02/09/21 04:00 Lymph % (Auto) 11.9 % (13.4-35.0) L 02/09/21 04:00 [place] % (Auto) 2.0 % (0.0-7.3) 02/09/21 04:00 Eos % (Auto) 0.2 % (0.0-4.3) 02/09/21 04:00 Baso % (Auto) 0.4 % (0.0-1.8) 02/09/21 04:00 Lymph # (Auto) 0.6 K/mm3 (1.2-5.4) L 02/09/21 04:00 [place] # (Auto) 0.1 K/mm3 (0.0-0.8) 02/09/21 04:00 Eos # (Auto) 0.0 K/mm3 (0.0-0.4) 02/09/21 04:00 Baso # (Auto) 0.0 K/mm3 (0.0-0.1) 02/09/21 04:00 Seg Neutrophils % 85.5 % (40.0-70.0) H 02/09/21 04:00 Seg Neutrophils # 4.1 K/mm3 (1.8-7.7) 02/09/21 04:00 PT 14.9 Sec. (12.2-14.9) 02/09/21 05:08 INR 1.12 (0.87-1.13) 02/09/21 05:08 D-Dimer 794.56 ng/mlDDU (0-234) H 02/08/21 21:52 Sodium 137 mmol/L (137-145) 02/09/21 04:00 Potassium 4.6 mmol/L (3.6-5.0) 02/09/21 04:00 Chloride 102.4 mmol/L (98-107) 02/09/21 04:00 Carbon Dioxide 22 mmol/L (22-30) 02/09/21 04:00 Anion Gap 17 mmol/L 02/09/21 04:00 BUN 13 mg/dL (7-17) 02/09/21 04:00 Creatinine 0.6 mg/dL (0.6-1.2) 02/09/21 04:00 Estimated GFR > 60 ml/min 02/09/21 04:00 BUN/Creatinine Ratio 22 % 02/09/21 04:00 Glucose 117 mg/dL (65-100) H 02/09/21 04:00 Lactic Acid 0.80 mmol/L (0.7-2.0) 02/08/21 21:52 Calcium 8.1 mg/dL (8.4-10.2) L 02/09/21 04:00 Magnesium 1.80 mg/dL (1.7-2.3) 02/08/21 21:52 Ferritin 110.6 ng/mL (10.0-200.0) 02/08/21 21:52 Total Bilirubin 0.40 mg/dL (0.1-1.2) 02/08/21 21:52 AST 14 units/L (5-40) 02/08/21 21:52 ALT 6 units/L (7-56) L 02/08/21 21:52 Alkaline Phosphatase 66 units/L (35-129) 02/08/21 21:52 Lactate Dehydrogenase 165 units/L (91-180) 02/08/21 21:52 Troponin T < 0.010 ng/mL (0.00-0.029) 02/08/21 21:52 C-Reactive Protein 6.10 mg/dL (0.00-1.30) H 02/08/21 21:52 NT-Pro-B Natriuret Pep 498.9 pg/mL (0-900) 02/08/21 21:52 Total Protein 7.9 g/dL (6.3-8.2) 02/08/21 21:52 Albumin 3.7 g/dL (3.9-5) L 02/08/21 21:52 Albumin/Globulin Ratio 0.9 % 02/08/21 21:52 Procalcitonin < 0.05 ng/mL (<0.15) 02/08/21 21:52 Urine Color Yellow (Yellow) 02/08/21 Unknown Urine Turbidity Hazy (Clear) 02/08/21 Unknown Urine pH 5.0 (5.0-7.0) 02/08/21 Unknown Ur Specific [place] 1.011 (1.003-1.030) 02/08/21 Unknown Urine Protein <15 mg/dl mg/dL (Negative) 02/08/21 Unknown Urine Glucose (UA) Neg mg/dL (Negative) 02/08/21 Unknown Urine Ketones Neg mg/dL (Negative) 02/08/21 Unknown Urine Blood Neg (Negative) 02/08/21 Unknown Urine Nitrite Neg (Negative) 02/08/21 Unknown Urine Bilirubin Neg (Negative) 02/08/21 Unknown Urine Urobilinogen < 2.0 mg/dL (<2.0) 02/08/21 Unknown Ur Leukocyte Esterase Neg (Negative) 02/08/21 Unknown Urine WBC (Auto) 5.0 /HPF (0.0-6.0) 02/08/21 Unknown Urine RBC (Auto) 1.0 /HPF (0.0-6.0) 02/08/21 Unknown U Epithel Cells (Auto) 13.0 /HPF (0-13.0) 02/08/21 Unknown Urine Mucus Few /HPF 02/08/21 Unknown Coronavirus (PCR) Negative (Negative) 02/08/21 Unknown Olmos/IV: Voiding Method External Female Catheter Active Medications - Current Medications Current Medications: Generic Name Dose Route Start Last Admin Trade Name Freq PRN Reason Stop Dose Admin Acetaminophen 650 mg 02/08/21 23:37 Acetaminophen 325 Mg Tab PO Q4H PRN Pain MILD(1-3)/Fever >100.5/IBRAHIM Albuterol/Ipratropium 1 ampul 02/10/21 14:00 02/11/21 08:36 Ipratropium/Albuterol Sulfate 3 Ml Ampul.Neb IH 1 ampul Q6HRT STEPHANY Administration Levofloxacin 750 mg 02/11/21 10:00 Levofloxacin 750 Mg Tab PO 02/15/21 10:01 Q48H [facility] Protocol Magnesium Hydroxide 30 ml 02/08/21 23:37 Magnesium Hydroxide (Mom) Oral Liqd Udc PO Q4H PRN Constipation Methylprednisolone Sodium Succinate 40 mg 02/09/21 06:00 02/11/21 06:08 Methylprednisolone Sod Succinate 40 Mg/1 Ml Inj IV 40 mg Q8HR STEPHANY Administration Morphine Sulfate 2 mg 02/08/21 23:37 02/10/21 14:20 Morphine 2 Mg/1 Ml Inj IV 2 mg Q4H PRN Administration Pain, Moderate (4-6) Morphine Sulfate 4 mg 02/08/21 23:37 Morphine 4 Mg/1 Ml Inj IV Q4H PRN Pain , Severe (7-10) Ondansetron HCl 4 mg 02/08/21 23:37 02/11/21 09:01 Ondansetron 4 Mg/2 Ml Inj IV 4 mg Q8H PRN Administration Nausea And Vomiting Sodium Chloride 10 ml 02/09/21 10:00 02/10/21 22:23 Sodium Chloride 0.9% 10 Ml Flush Syringe IV 10 ml BID STEPHANY Administration Sodium Chloride 10 ml 02/08/21 23:37 Sodium Chloride 0.9% 10 Ml Flush Syringe IV PRN PRN LINE FLUSH Nutrition/Malnutrition Assess - Dietary Evaluation Nutrition/Malnutrition Findings: Nutrition Notes Start: 02/09/21 17:13 Freq: Status: Active Protocol: Document 02/09/21 17:13 [facility] (Rec: 02/09/21 17:17 NHALL [id number]) Nutrition Notes Need for Assessment generated from: Low BMI Initial or Follow up Assessment Current Diagnosis COPD Other Pertinent Diagnosis COPD exacerbation, FTT, Lung CA Current Diet Regular Labs/Tests Reviewed Pertinent Medications Solumedrol Height 5 ft 6 in Weight 48.534 kg [place] Body Weight (kg) 59.09 BMI 17.2 Weight Status Underweight Subjective/Other Information Pt screened for low BMI. Pt in ED at this time. Burn Absent Trauma Absent #1 Nutrition Diagnosis Underweight Etiology advanced age, COPD As Evidenced by Signs and Symptoms BMI 17.3 Is patient on ventilator? No Is Patient Ambulatory and/or Out of Bed No REE-([facility]-confined to bed) 1179.504 Kcal/Kg value to use for calculation 35 Approximate Energy Requirements Using 1699 kcal/Kg Calculation Used for Recommendations Kcal/kg Additional Notes Pro needs 1.2-1.5g/k-73g/ day Fluid needs 1ml/kcal Nutrition Intervention Change Diet Order: Continue current diet order Goal #1 PO intakes to meet at least 75 % energy and pro needs Goal #2 Wt maintenance and/or gain Anticipated Discharge Needs: May need ONS 1-2 times daily for wt maintenance Follow-Up By: 02/11/21 Additional Comments F/U: intakes, need for ONS
--- NOTE | 2021-02-11 11:21 | Consultation ---
History of Present Illness Consult date: 02/11/21 Requesting physician: ANNETTE CRUZ Reason for consult: COPD History of present illness: 80 y/o female with known COPD, and chronic respiratory failure, followed by a pulm doc in [place] admitted with nausea and vomiting and difficulty in breathing. Per patient quit smoking 6 weeks ago. States that she only uses oxygen PRN but I suspect she is suppose to be on it continuously. Consulted by IMS for dyspnea and COPD exacerbation. Past History Past Medical History: COPD, other (H/O Lung CA.) Past Surgical History: No surgical history Social history: no significant social history Family history: no significant family history Medications and Allergies Allergies Allergy/AdvReac Type Severity Reaction Status Date / Time Penicillins Allergy Mild Hives Verified 02/08/21 21:24 Active Meds: Active Medications Acetaminophen (Acetaminophen 325 Mg Tab) 650 mg PO Q4H PRN PRN Reason: Pain MILD(1-3)/Fever >100.5/IBRAHIM Albuterol/Ipratropium (Ipratropium/Albuterol Sulfate 3 Ml Ampul.Neb) 1 ampul IH Q6HRT [facility] Last Admin: 02/11/21 08:36 Dose: 1 ampul Documented by: Budesonide (Budesonide 0.5 Mg/2 Ml Nebu) 0.5 mg IH Q12HRT STEPHANY Levofloxacin (Levofloxacin 750 Mg Tab) 750 mg PO Q48H [facility]; Protocol Stop: 02/15/21 10:01 Last Admin: 02/11/21 10:27 Dose: 750 mg Documented by: Magnesium Hydroxide (Magnesium Hydroxide (Mom) Oral Liqd Udc) 30 ml PO Q4H PRN PRN Reason: Constipation Methylprednisolone Sodium Succinate (Methylprednisolone Sod Succinate 40 Mg/1 Ml Inj) 40 mg IV Q8HR [facility] Last Admin: 02/11/21 06:08 Dose: 40 mg Documented by: Morphine Sulfate (Morphine 2 Mg/1 Ml Inj) 2 mg IV Q4H PRN PRN Reason: Pain, Moderate (4-6) Last Admin: 02/10/21 14:20 Dose: 2 mg Documented by: Morphine Sulfate (Morphine 4 Mg/1 Ml Inj) 4 mg IV Q4H PRN PRN Reason: Pain , Severe (7-10) Ondansetron HCl (Ondansetron 4 Mg/2 Ml Inj) 4 mg IV Q8H PRN PRN Reason: Nausea And Vomiting Last Admin: 02/11/21 09:01 Dose: 4 mg Documented by: Sodium Chloride (Sodium Chloride 0.9% 10 Ml Flush Syringe) 10 ml IV BID STEPHANY Last Admin: 02/11/21 10:28 Dose: 10 ml Documented by: Sodium Chloride (Sodium Chloride 0.9% 10 Ml Flush Syringe) 10 ml IV PRN PRN PRN Reason: LINE FLUSH Review of Systems All systems: negative Physical Examination Vital signs: Vital Signs BP Pulse Ox 134/69 99 02/08/21 20:02 02/08/21 20:02 General appearance: no acute distress, alert, other (appears much older than stated age) Eyes: non-icteric ENT: other (edentulous) Neck: supple Effort: normal Ascultation: Bilateral: diminished breath sounds Percussion: Bilateral: not dull Tactile fremitus: Bilateral: normal Cardiovascular: regular rate and rhythm Results - Laboratory Findings CBC and BMP: 02/09/21 04:00 02/09/21 04:00 PT/INR, D-dimer PT 14.9 Sec. (12.2-14.9) 02/09/21 05:08 INR 1.12 (0.87-1.13) 02/09/21 05:08 D-Dimer 794.56 ng/mlDDU (0-234) H 02/08/21 21:52 Abnormal lab findings: Abnormal Labs 02/08/21 02/08/21 02/08/21 21:52 21:52 21:52 RDW 17.3 H Lymph % (Auto) Leslie % (Auto) 7.8 H Lymph # (Auto) 1.1 L Seg Neutrophils % 75.8 H D-Dimer Glucose Calcium ALT 6 L C-Reactive Protein 6.10 H Albumin 3.7 L 02/08/21 02/09/21 02/09/21 21:52 04:00 04:00 RDW 16.9 H Lymph % (Auto) 11.9 L Leslie % (Auto) Lymph # (Auto) 0.6 L Seg Neutrophils % 85.5 H D-Dimer 794.56 H Glucose 117 H Calcium 8.1 L ALT C-Reactive Protein Albumin - Diagnostic Findings Chest x-ray: image reviewed Assessment and Plan 80 y/o female with acute on chronic respiratory failure and COPD exacerbation. 1. Agree with steroids, can likely start to wean in the next 24-36 hours 2. Patient does not know the names of her meds at home. Added BID pulmicort here and ok with continuing scheduled duonebs 3. Smoking cessation 4. Most likely will need oxygen /, assess prior to discharge 5. Monitor volume and keep net negative if possible
--- NOTE | 2021-02-11 13:47 | Discharge Summary ---
Providers - Providers Date of Admission: 02/10/21 16:33 Date of discharge: 02/11/21 Attending physician: ANNETTE CRUZ 02/11/21 07:42 Consult to Physician [CONS] Routine Comment: Consulting Provider: RAVEN AVITIA Physician Instructions: Reason For Exam: hypoxia Primary care physician: QUALITY AUDIT REPRESENTATIVE Hospitalization Reason for admission: Acute hypoxic resp failure, COPD exac Condition: Poor Hospital course: 80-year-old female with known history of COPD-on home oxygen and lung cancer presented to the emergency room on 02/09/21 complaining of cough, shortness of breath and generalized body weakness. Cough had been productive for some clear sputum. Patient had been fully vaccinated against COVID-19. Work-up in the emergency room with chest x-ray showing no acute findings. Lab tests were unremarkable. Patient received nebulizing treatments and IV steroid in the emergency room. The patient also received breathing treatments and steroids during hospitalization as well as supplemental O2. Pt had significant improvement with sats 94% on room air. Pulm consulted and recommended to continue home O2 ans steroid taper. CM consulted for d/c planning. (please see PN for details). D/c back to [facility] hospice at personal custodial. CM spoke to caregiver there willing to take her back. D/C time 35 min Disposition: DC-50 TO HOSPICE (HOME) Final Discharge Diagnosis (Prints w/discharge instructions): Acute hypoxic resp failure, lung ca, copd exac Core Measure Documentation - Palliative Care Palliative Care/ Comfort Measures: Not Applicable - Core Measures Any of the following diagnoses?: none Exam - Constitutional Vitals: Temp Pulse Resp BP Pulse Ox 98.2 F 139 H 18 123/86 93 02/11/21 11:56 02/11/21 11:56 02/11/21 11:56 02/11/21 11:56 02/11/21 11:56 General appearance: Present: no acute distress, well-nourished - EENT Eyes: Present: PERRL ENT: hearing intact, clear oral mucosa - Neck Neck: Present: supple, normal ROM - Respiratory Respiratory effort: normal Respiratory: bilateral: CTA - Cardiovascular Heart Sounds: Present: S1 & S2. Absent: rub, click - Extremities Extremities: pulses symmetrical, No edema Peripheral Pulses: within normal limits - Abdominal General gastrointestinal: Present: soft, non-tender, non-distended, normal bowel sounds Female genitourinary: Present: normal - Integumentary Integumentary: Present: clear, warm, dry - Musculoskeletal Musculoskeletal: gait normal, strength equal bilaterally - Psychiatric Psychiatric: appropriate mood/affect, intact judgment & insight - Neurologic Neurologic: CNII-XII intact, moves all extremities Plan Activity: advance as tolerated Weight Bearing Status: Weight Bear as Tolerated Diet: regular Follow up with: PRIMARY CARE,MD [Primary Care Provider] - 3-5 Days Prescriptions: Prednisone [predniSONE 10 mg (6-Day Pack, 21 Tabs)] 10 mg PO .TAPER #1 tab.ds.pk
[2021-02-11 16:05] VITALS: BP 167/90
[2021-02-11] MEDS ORDERED: BUDESONIDE 0.5 MG/2 ML NEBU IH SCH (20:00)
== END 2021-02-11 18:10 | disposition hospice, home (50) | DRG 189 ==
LOC: ED 19:22 → 3A 23:17 → 4A 02-09 18:10 → OBSVTOIN 02-10 16:33
PROVIDERS: ADMIT Internal Medicine Geriatric Medicine; ATTEND Hospitalist
DX: J96.21 Acute and chronic respiratory failure with hypoxia (principal); J44.1 Chronic obstructive pulmonary disease with (acute) exacerbation; Z68.1 Body mass index [BMI] 19.9 or less, adult; Z71.89 Other specified counseling; Z85.118 Personal history of other malignant neoplasm of bronchus and lung; Z88.0 Allergy status to penicillin; Z66 Do not resuscitate; Z87.891 Personal history of nicotine dependence; R62.7 Adult failure to thrive
CPT/HCPCS: 36415; 71045; 80048; 80053; 81001; 82140; 82728; 82947; 83615; 83735; 83880; 84145; 84484; 85025; 85379; 85610; 86140; 93005; 94640; 94644; 94760; 96374; G0378; J1100; J1642; J1956; J2270; J2405; J2920; J7040; U0003

== ENCOUNTER 2021-03-03 14:51 | Emergency (ER) | payer MEDICARE ==
--- NOTE | 2021-03-03 17:57 | Emergency Department Report ---
HPI - General Chief Complaint: Weakness Time Seen by Provider: 03/03/21 17:37 - HPI HPI: Room 25 The patient is a 80-year-old female present with a chief complaint of hypotension. Patient is reportedly on hospice secondary to lung CA. Per EMS the hospice nurse told the mobility architect to call 911 after the patient was found to be hypotensive. EMS was called when they arrived on scene the hospice nurse had already left to go to another patient. EMS reports the patient was found to be hypotensive 88/40. There were no preceding symptoms reported by the mobility architect. EMS initiated IV fluids and upon arrival to the ED the patient was found to be normotensive with a blood pressure of 124/70. The patient is reportedly nonverbal at baseline she does not answer questions. ED Past Medical Hx - Past Medical History Previous Medical History?: Yes Hx of Cancer: Yes (Lung CA, no treatment) Hx COPD: Yes (Home O2) Additional medical history: lung CA - Surgical History Past Surgical History?: No - Family History Family history: no significant - Social History Smoking Status: Unknown if ever smoked - Medications Home Medications: Home Medications Medication Instructions Recorded Confirmed Last Taken Type Prednisone [predniSONE 10 mg 10 mg PO .TAPER #1 tab.ds.pk 02/11/21 Unknown Rx (6-Day Pack, 21 Tabs)] ED Review of Systems ROS: Stated complaint: LOW BP Other details as noted in HPI Comment: Unobtainable due to pts medical conditions Physical Exam - Physical Exam Vital Signs: Vital Signs 03/03/21 15:00 Temperature 97.8 F Pulse Rate 74 Respiratory 14 Rate Blood Pressure 124/70 O2 Sat by Pulse 94 Oximetry Vital Signs 03/03/21 03/03/21 03/03/21 15:00 17:52 18:00 Temperature 97.8 F 98.7 F Pulse Rate 74 91 H 91 H Respiratory 14 28 H 25 H Rate Blood Pressure 124/70 147/67 Blood Pressure 147/67 [Right] O2 Sat by Pulse 94 98 95 Oximetry 03/03/21 03/03/21 03/03/21 18:25 19:00 19:30 Temperature Pulse Rate 89 91 H 91 H Respiratory 99 H 23 23 Rate Blood Pressure 135/58 123/65 Blood Pressure 129/60 [Right] O2 Sat by Pulse 99 98 Oximetry 03/03/21 03/03/21 03/03/21 20:00 20:15 20:30 Temperature Pulse Rate 83 90 Respiratory 27 H 21 Rate Blood Pressure 129/68 128/60 Blood Pressure [Right] O2 Sat by Pulse 91 95 95 Oximetry 03/03/21 03/03/21 03/03/21 21:00 21:30 22:00 Temperature Pulse Rate 87 90 91 H Respiratory 20 26 H 25 H Rate Blood Pressure 119/59 143/65 132/59 Blood Pressure [Right] O2 Sat by Pulse 97 100 98 Oximetry 03/03/21 22:30 Temperature Pulse Rate 92 H Respiratory 26 H Rate Blood Pressure 132/59 Blood Pressure [Right] O2 Sat by Pulse 98 Oximetry Physical Exam: GENERAL: The patient is well-developed thin elderly female lying on stretcher nonverbal HEENT: Normocephalic. Atraumatic. Extraocular motions are intact. Pupils 3 mm bilaterally NECK: Supple. Trachea midline CHEST/LUNGS: Clear to auscultation. There is no respiratory distress noted. HEART/CARDIOVASCULAR: Regular. There is no tachycardia. There is no gallop rub or murmur. ABDOMEN: Abdomen is soft, nontender. Patient has normal bowel sounds. There is no abdominal distention. SKIN: There is no rash. There is no edema. There is no diaphoresis. NEURO: The patient is nonverbal and does not respond to questions. Patient does attempt to squeeze her eyes closed during the pupil exam but she does not speak. MUSCULOSKELETAL: There is no evidence of acute injury. ED Course Vital Signs 03/03/21 15:00 Temperature 97.8 F Pulse Rate 74 Respiratory 14 Rate Blood Pressure 124/70 O2 Sat by Pulse 94 Oximetry ED Medical Decision Making - Lab Data Result diagrams: 03/03/21 19:42 03/03/21 19:42 Lab Results 03/03/21 03/03/21 03/03/21 Range/Units 19:42 19:42 19:42 WBC 7.6 (4.5-11.0) K/mm3 RBC 3.71 (3.65-5.03) M/mm3 Hgb 10.7 (10.1-14.3) gm/dl Hct 33.1 (30.3-42.9) % MCV 89 (79-97) fl MCH 29 (28-32) pg MCHC 32 (30-34) % RDW 17.5 H (13.2-15.2) % Plt Count 388 (140-440) K/mm3 Lymph % (Auto) 17.9 (13.4-35.0) % Boyle % (Auto) 10.2 H (0.0-7.3) % Eos % (Auto) 4.7 H (0.0-4.3) % Baso % (Auto) 0.4 (0.0-1.8) % Lymph # (Auto) 1.4 (1.2-5.4) K/mm3 Boyle # (Auto) 0.8 (0.0-0.8) K/mm3 Eos # (Auto) 0.4 (0.0-0.4) K/mm3 Baso # (Auto) 0.0 (0.0-0.1) K/mm3 Seg Neutrophils % 66.8 (40.0-70.0) % Seg Neutrophils # 5.1 (1.8-7.7) K/mm3 Sodium 138 (137-145) mmol/L Potassium 4.9 (3.6-5.0) mmol/L Chloride 103.2 (98-107) mmol/L Carbon Dioxide 27 (22-30) mmol/L Anion Gap 13 mmol/L BUN 14 (7-17) mg/dL Creatinine 0.5 L (0.6-1.2) mg/dL Estimated GFR > 60 ml/min BUN/Creatinine Ratio 28 % Glucose 83 (65-100) mg/dL Lactic Acid 1.30 (0.7-2.0) mmol/L Calcium 8.3 L (8.4-10.2) mg/dL Magnesium 1.80 (1.7-2.3) mg/dL Total Bilirubin 0.20 (0.1-1.2) mg/dL AST 11 (5-40) units/L ALT < 5 L (7-56) units/L Alkaline Phosphatase 70 (35-129) units/L Total Creatine Kinase 121 (30-135) units/L CK-MB (CK-2) 1.8 (0.0-4.0) ng/mL CK-MB (CK-2) Rel Index 1.4 (0-4) Troponin T < 0.010 (0.00-0.029) ng/mL Total Protein 6.1 L (6.3-8.2) g/dL Albumin 3.0 L (3.9-5) g/dL Albumin/Globulin Ratio 1.0 % TSH (0.270-4.200) mlU/mL Free T4 (0.76-1.46) ng/dL Urine Color (Yellow) Urine Turbidity (Clear) Urine pH (5.0-7.0) Ur Specific [place] (1.003-1.030) Urine Protein (Negative) mg/dL Urine Glucose (UA) (Negative) mg/dL Urine Ketones (Negative) mg/dL Urine Blood (Negative) Urine Nitrite (Negative) Urine Bilirubin (Negative) Urine Urobilinogen (<2.0) mg/dL Ur Leukocyte Esterase (Negative) Urine WBC (Auto) (0.0-6.0) /HPF Urine RBC (Auto) (0.0-6.0) /HPF U Epithel Cells (Auto) (0-13.0) /HPF Urine Mucus /HPF 03/03/21 03/03/21 Range/Units 19:42 Unknown WBC (4.5-11.0) K/mm3 RBC (3.65-5.03) M/mm3 Hgb (10.1-14.3) gm/dl Hct (30.3-42.9) % MCV (79-97) fl MCH (28-32) pg MCHC (30-34) % RDW (13.2-15.2) % Plt Count (140-440) K/mm3 Lymph % (Auto) (13.4-35.0) % Boyle % (Auto) (0.0-7.3) % Eos % (Auto) (0.0-4.3) % Baso % (Auto) (0.0-1.8) % Lymph # (Auto) (1.2-5.4) K/mm3 Boyle # (Auto) (0.0-0.8) K/mm3 Eos # (Auto) (0.0-0.4) K/mm3 Baso # (Auto) (0.0-0.1) K/mm3 Seg Neutrophils % (40.0-70.0) % Seg Neutrophils # (1.8-7.7) K/mm3 Sodium (137-145) mmol/L Potassium (3.6-5.0) mmol/L Chloride (98-107) mmol/L Carbon Dioxide (22-30) mmol/L Anion Gap mmol/L BUN (7-17) mg/dL Creatinine (0.6-1.2) mg/dL Estimated GFR ml/min BUN/Creatinine Ratio % Glucose (65-100) mg/dL Lactic Acid (0.7-2.0) mmol/L Calcium (8.4-10.2) mg/dL Magnesium (1.7-2.3) mg/dL Total Bilirubin (0.1-1.2) mg/dL AST (5-40) units/L ALT (7-56) units/L Alkaline Phosphatase (35-129) units/L Total Creatine Kinase (30-135) units/L CK-MB (CK-2) (0.0-4.0) ng/mL CK-MB (CK-2) Rel Index (0-4) Troponin T (0.00-0.029) ng/mL Total Protein (6.3-8.2) g/dL Albumin (3.9-5) g/dL Albumin/Globulin Ratio % TSH 3.300 (0.270-4.200) mlU/mL Free T4 1.11 (0.76-1.46) ng/dL Urine Color Yellow (Yellow) Urine Turbidity Clear (Clear) Urine pH 5.0 (5.0-7.0) Ur Specific [place] 1.018 (1.003-1.030) Urine Protein <15 mg/dl (Negative) mg/dL Urine Glucose (UA) Neg (Negative) mg/dL Urine Ketones Neg (Negative) mg/dL Urine Blood Neg (Negative) Urine Nitrite Neg (Negative) Urine Bilirubin Neg (Negative) Urine Urobilinogen < 2.0 (<2.0) mg/dL Ur Leukocyte Esterase Neg (Negative) Urine WBC (Auto) < 1.0 (0.0-6.0) /HPF Urine RBC (Auto) 2.0 (0.0-6.0) /HPF U Epithel Cells (Auto) < 1.0 (0-13.0) /HPF Urine Mucus Few /HPF - EKG Data -: EKG Interpreted by Ga EKG shows normal: sinus rhythm Rate: normal - EKG Data When compared to previous EKG there are: previous EKG unavailable Interpretation: other (No ischemic changes seen) - Radiology Data Radiology results: report reviewed (Chest x-ray), image reviewed (Chest x-ray) interpreted by me: Chest x-ray-no definite focal infiltrates, no pneumothorax. [facility] [address] [place] [address] XRay Report Signed Patient: LIT FELIX MR#: [id number] 06 : 1940 Acct:[id number] Age/Sex: 80 / F ADM Date: 03/03/21 Loc: ED Attending Dr: Ordering Physician: PHILOMENA YAP MD Date of Service: 03/03/21 Procedure(s): XR chest 1V ap Accession Number(s): [id number] cc: PHILOMENA YAP MD Fluoro Time In Minutes: CHEST 1 VIEW INDICATION / CLINICAL INFORMATION: History of hypertension STUDY TIME: 1915 COMPARISON: 02/08/2021 FINDINGS: SUPPORT DEVICES: Stable HEART / MEDIASTINUM: Stable LUNGS / PLEURA: Moderate chronic changes are again seen bilaterally. No definite acute superimposed infiltrate is noted. No pneumothorax. ADDITIONAL FINDINGS: No significant additional findings. Signer Name: Dallas Rey MD Signed: 03/03/2021 7:39 PM Workstation Name: [id number] Transcribed By: GJ Dictated By: Dallas Rey MD Electronically Authenticated By: Dallas Rey MD Signed Date/Time: 03/03/211938 DD/ 37 TD/TT: Print Cancel - Medical Decision Making Patient has remained normotensive since initial fluid challenge. Labs unremarkable. - Differential Diagnosis Dehydration, sepsis, symptomatic anemia, Critical care attestation.: If time is entered above; I have spent that time in minutes in the direct care of this critically ill patient, excluding procedure time. ED Disposition Clinical Impression: Dehydration Disposition: 06 HOME HEALTH CARE SERVICE Is pt being admited?: No Does the pt Need Aspirin: No Condition: Stable Instructions: Dehydration, Adult, [id number] Additional Instructions: Return to the emergency department should you develop worsening symptoms, inability to tolerate food or liquids, high fever or any other concerns Time of Disposition: 23:37
--- NOTE | 2021-03-03 19:43 | XRay Report ---
CHEST 1 VIEW INDICATION / CLINICAL INFORMATION: History of hypertension STUDY TIME: 1915 COMPARISON: 02/08/2021 FINDINGS: SUPPORT DEVICES: Stable HEART / MEDIASTINUM: Stable LUNGS / PLEURA: Moderate chronic changes are again seen bilaterally. No definite acute superimposed i nfiltrate is noted. No pneumothorax. ADDITIONAL FINDINGS: No significant additional findings. Signer Name: Dallas Rey MD Signed: 03/03/2021 7:39 PM Workstation Name: [id number]
[2021-03-03 20:05] LABS: Basophils % (Auto) 0.4 % (0.0-1.8); Eosinophils # (Auto) 0.4 K/mm3 (0.0-0.4); Eosinophils % (Auto) 4.7 % (0.0-4.3); Hematocrit 33.1 % (30.3-42.9); Hemoglobin 10.7 gm/dl (10.1-14.3); Lymphocytes # (Auto) 1.4 K/mm3 (1.2-5.4); Lymphocytes % (Auto) 17.9 % (13.4-35.0); Mean Corpuscular HGB Conc 32 % (30-34); Mean Corpuscular Volume 89 fl (79-97); Monocytes # (Auto) 0.8 K/mm3 (0.0-0.8); Monocytes % (Auto) 10.2 % (0.0-7.3); Platelet Count 388 K/mm3 (140-440); Red Blood Count 3.71 M/mm3 (3.65-5.03); Red Cell Distribution Width 17.5 % (13.2-15.2)
[2021-03-03 20:23] LABS: Blood Urea Nitrogen 14 mg/dL (7-17); Calcium 8.3 mg/dL (8.4-10.2); Creatine Kinase MB 1.8 ng/mL (0.0-4.0); Hemolysis Index 5
[2021-03-03 20:29] LABS: Alanine Aminotransferase < 5 units/L (7-56); BUN/Creatinine Ratio 28
[2021-03-03 20:30] LABS: Free T4 (Free Thyroxine) 1.11 ng/dL (0.76-1.46)
[2021-03-03 22:56] LABS: Bilirubin,Urine NEG (Negative); Blood,Urine NEG (Negative); Color,Urine Yellow (Yellow); Mucus,Urine FEW /HPF; Protein,Urine <15 mg/dL mg/dL (Negative); Urobilinogen,Urine < 2.0 mg/dL (<2.0); WBC,Urine < 1.0 /HPF (0.0-6.0)
[2021-03-04 01:15] VITALS: BP 146/79
--- NOTE | 2021-03-04 10:27 | Electrocardiograph Report ---
[facility] Test Date: 2021-03-03 Test Time: 19:02:21 Pat Name: LIT FELIX Department: Room: Gender: F [employer]: NURSE : 1940 Requested By: PHILOMENA YAP Order Number: [id number] Reading MD: Ricky Hammond Measurements Intervals [place] Rate: 91 P: 86 KS: 144 QRS: 9 QRSD: 75 T: 68 QT: 361 QTc: 444 Interpretive Statements Sinus rhythm nonspecific st-t Compared to ECG 02/08/2021 21:42:25 Electronically Signed On 03-04-2021 10:27:10 EDT by Ricky Hammond
== END 2021-03-04 01:18 | disposition home health service (06) ==
LOC: ED 14:51
DX: E86.0 Dehydration (principal); Z85.9 Personal history of malignant neoplasm, unspecified
CPT/HCPCS: 36415; 71045; 80053; 81001; 82140; 82550; 82553; 83735; 84439; 84443; 84484; 85025; 87040; 93005; 99284